=== PATIENT | male | born 1945 | race Caucasian/White ===

== ENCOUNTER 2017-10-23 12:51 | Day surgery (SDC) | payer OTHER ==
[~2017-10-23] VITALS: Ht 172.7 cm; Wt 83.9 kg
[~2017-10-23 12:51] MED LIST: IRON325 MG PO; LEXAPRO10 MG PO; NABI650T PO; NORCO 5/3251 TABLET PO; NORVASC10 MG PO; PROTONIX40 MG PO; RENAL CAPS SOFTG1 MG PO; RENVELA800 MG PO; ROCALTROL0.25 MCG PO; TENORMIN25 MG PO; VITAMIN D32000 UNI1 PO; ZOCOR20 MG PO
[2017-10-23 13:28] LABS: MCH 30.4 PG (29.0-34.0); MCHC 32.1 G/DL (30.0-36.0); MCV 94.6 FL (86-99); PLATELET COUNT 141 K/uL (156-360); RBC DIS.WIDTH-CV 13.9 % (11.8-14.6); RBC DIS.WIDTH-SD 48.2 % (39-53); RED BLOOD COUNT 2.96 M/uL (4.00-5.50); WHITE BLOOD COUNT 6.7 K/uL (4.1-10.2)
[2017-10-23 13:37] VITALS: BP 161/72
[2017-10-23 13:50] LABS: CHLORIDE 109 MEQ/L (99-109); CREATININE 7.3 MG/DL (0.6-1.3); GFR ESTIMATE (CALCULATED) 8 mL/min/ (58.99-99999); GLUCOSE 91 mg/dL (70-99); POTASSIUM 5.6 MEQ/L (3.7-5.4); SODIUM 143 MEQ/L (136-147); UREA NITROGEN (BUN) 68 mg/dL (9-23)
[2017-10-23 15:30] VITALS: BP 159/65
[2017-10-23 15:54] VITALS: BP 159/77
== END 2017-10-23 16:00 | disposition home or self-care (01) ==
LOC: SDC 12:51
PROVIDERS: Surgery
PROC: 0JWT33Z Revision of Infusion Device in Trunk Subcutaneous Tissue and Fascia, Percutaneous Approach (ICD-10-PCS; principal; 2017-10-23)
DX: I12.9 Hypertensive chronic kidney disease with stage 1 through stage 4 chronic kidney disease, or unspecified chronic kidney disease (principal); E11.22 Type 2 diabetes mellitus with diabetic chronic kidney disease; N18.4 Chronic kidney disease, stage 4 (severe); F41.8 Other specified anxiety disorders; E78.5 Hyperlipidemia, unspecified
CPT/HCPCS: 80048; 82948; 85027; J0690; J2250; J3010; S0020